=== PATIENT | female | born 1995 | race Two or more races ===

== ENCOUNTER 2020-06-14 13:52 | Emergency (ER) | payer MEDICAID ==
[~2020-06-14] VITALS: Ht 170.2 cm; Wt 100.0 kg
[2020-06-14] MEDS ORDERED: ACETAMINOPHEN 325MG TABLET PO STA (14:37)
[2020-06-14] MEDS ORDERED: SODIUM CHLORIDE 0.9% 1,000 ML IV ONE (14:45)
[2020-06-14 14:52] LABS: BASOPHILS % 0.3 % (0.0-2.0); EOSINOPHILS % 0.3 % (0.0-5.0); HEMATOCRIT. 32.8 % (36.0-48.0); LYMPHOCYTES % 25.8 % (20.0-50.0); MEAN CORPUSCULAR HEMOGLOBIN 28.5 pg (28.0-32.0); MEAN CORPUSCULAR VOLUME 85.3 fL (81.0-99.0); MEAN PLATELET VOLUME 7.9 fl (7.4-10.4); MONOCYTES % 6.2 % (2.0-8.0); NEUTROPHILS % 67.4 % (40.0-76.0); PLATELET 301 x1000/uL (130-400); RED BLOOD CELL COUNT 3.84 mill/uL (4.2-5.4); RED CELL DISTRIBUTION WIDTH 12.7 % (11.6-14.6)
[2020-06-14 14:59] LABS: CHLORIDE 109 mEq/L (98-107)
[2020-06-14 15:12] LABS: HCG SCREEN POSITIVE
[2020-06-14 15:35] LABS: B-HCG QUANTITATIVE 457 mIU/mL (<3)
[2020-06-14 17:34] VITALS: BP 120/84
== END 2020-06-14 17:39 | disposition home or self-care (01) ==
LOC: ER 13:52 → CANBEDREQ 18:51
DX: S93.492A Sprain of other ligament of left ankle, initial encounter (principal); R55 Syncope and collapse; R06.02 Shortness of breath; W01.0XXA Fall on same level from slipping, tripping and stumbling without subsequent striking against object, initial encounter; Y93.89 Activity, other specified; Y92.018 Other place in single-family (private) house as the place of occurrence of the external cause; Y99.8 Other external cause status
CPT/HCPCS: 36415; 73610; 76830; 76856; 80053; 84702; 84703; 85025; 86850; 86900; 86901; 93005; 94640; 96360; 99285; J7030; Z7610